=== PATIENT | male | born 1985 | race Caucasian/White ===

== ENCOUNTER 2017-02-20 15:18 | Emergency (ER) | payer SELFPAY ==
[~2017-02-20] VITALS: Ht 177.8 cm; Wt 77.3 kg
[2017-02-20 15:19] VITALS: BP 117/73
[2017-02-20] MEDS ORDERED: ZIPR20CA12 PO (15:34)
[2017-02-20] MEDS ORDERED: SILD20TA2 PO (15:34)
[2017-02-20] MEDS ORDERED: NORT25CA3 PO (15:34)
[2017-02-20] MEDS ORDERED: ALPR2TAB7 PO (15:34)
[2017-02-20] MEDS ORDERED: DIAZ10TA4 PO (15:34)
[2017-02-20] MEDS ORDERED: OXYC30TA2 PO (15:34)
== END 2017-02-20 16:36 | disposition home or self-care (01) ==
LOC: EMS 15:24
DX: F32.9 Major depressive disorder, single episode, unspecified (principal); F41.9 Anxiety disorder, unspecified
CPT/HCPCS: 99284